=== PATIENT | female | born 1960 | race Caucasian/White ===

== ENCOUNTER → 2017-08-18 | Outpatient (CLI) | payer OTHER ==
[~2017-08-18] MED LIST: ALPR.5 PO; LEVO25TA4 PO
--- NOTE | 2017-08-18 22:47 | EKG ---
Date Performed: 08/18/2017 Time Performed: 10:40:32 PTAGE: 56 years EKG: Sinus rhythm NORMAL ECG NO PREVIOUS TRACING DOCTOR: Rosie Corona Interpretating Date/Time 08/18/2017 22:44:50
== END ==
LOC: PHPRE 09:40
PROVIDERS: ATTEND Ophthalmology
DX: E07.9 Disorder of thyroid, unspecified (principal)
CPT/HCPCS: 93005

== ENCOUNTER → 2017-09-01 | Day surgery (SDC) | payer OTHER ==
--- NOTE | 2017-08-27 13:32 | MH ---
cc: Hayden Granger MD DATE OF ADMISSION: 09/01/2017 ADMISSION DIAGNOSIS: Cataract, right eye. HISTORY OF PRESENT ILLNESS: This 56-year-old white female is coming to [facility] for the purpose of a lens extraction of the right eye with intraocular lens implant under local anesthesia. She has noticed decreasing visual acuity interfering with her daily activities and elected to have the above procedure. Her best corrected acuity is 20/40-2, +2 in the right eye and 20/40-1 in the left eye. PAST MEDICAL HISTORY: Patient has a history of hypothyroid problems. SURGICAL HISTORY: Tonsillectomy at age 5. DAILY MEDICATIONS: Latisse for her eyelashes, levothyroxine, Xanax p.r.n., melatonin and vitamin D. SHE HAS NO KNOWN ALLERGIES. SOCIAL HISTORY: Has been a smoker and drinks 4 glasses of wine per week. FAMILY HISTORY: Positive for mother with cataracts and her mother developed ocular myasthenia gravis after her cataract surgery, and father with macular degeneration. REVIEW OF SYSTEMS: HEAD: Patient denies severe headaches, dizziness or recent head injury. EARS: Patient has some hearing loss and sometimes gets tinnitus in her ears. NOSE: Patient denies nasal discharge, obstruction or frequent colds. MOUTH AND THROAT: Patient denies soreness of the mouth or tongue, bleeding gums, trouble swallowing, changes in voice or sore throat. NECK: Patient denies neck pain or swelling, limitation of neck movement or neck injury. CARDIOPULMONARY SYSTEM: Patient denies shortness of breath, orthopnea, sputum production, hemoptysis, chest pain, wheezing, palpitations or light-headedness. Sometimes with some coughing from maybe postnasal drip. GI SYSTEM: Patient denies poor appetite, nausea, vomiting, abdominal pain, ulcers, hemorrhoids or change in bowel habits. SYSTEM: The patient denies urinary frequency, dysuria, change in urine color. NERVOUS SYSTEM: Patient denies convulsions, vertigo, stroke, numbness or weakness. PHYSICAL EXAMINATION: Blood pressure 118/72, pulse 64, respirations 16. HEAD: Normocephalic, atraumatic. NOSE: Without rhinorrhea. THROAT: Clear. NECK: Supple. CHEST: Clear. HEART: Regular rhythm with murmur. ABDOMEN: Without tenderness. EXTREMITIES: Without edema. NEUROLOGIC: Within normal limits. MENTAL STATUS: Within normal limits. EYE EXAMINATION: Patient's best corrected visual acuity is 20/40-2, +2 in the right eye and 20/40-1 in the left eye. Visual ruiz are full to confrontation testing. Extraocular muscle exam reveals full versions distance and near. Pupils are 3 mm, equal, round, reactive to light without efferent defect. Anterior segment examination reveals nuclear sclerotic and posterior subcapsular cataract as well as peripheral cortical cataract changes, greater in the right eye than the left. Intraocular pressure is 14 in the right eye and 16 in the left eye by applanation tonometry. exam revealed sharp discs with cup-to-disc ratio 0.2 bilaterally. The macula looks clear and posterior vitreous detachment is present in the right eye. IMPRESSION: 1. Bilateral cataracts, right greater than left. 2. Posterior vitreous detachment, right eye. 3. Dry eyes. PLAN: Lens extraction of the right eye with intraocular lens implant under local anesthesia through [facility]. Patient has been cleared medically. She has been counseled as to the risks, benefits and alternatives and elected to proceed. I feel that cataract surgery will improve the quality of life and activities of daily living in this patient. MD DAGO De León/SB , 12:58 PM , 01:31 PM
[~2017-09-01] VITALS: Ht 157.5 cm; Wt 67.2 kg
[~2017-09-01] MED LIST changes: +ACETYLCHOLINE CHL OPHT SOLN 1:100 2 ML VIAL ONE; +CHLORHEXIDINE GLUCONATE 2 % 1 PACK (2 CLOTHS) TOPICAL PRN; +EPINEPHrine HCL PF/SF (1:1000) 1 MG/ML AMP I-OCULAR ONE; +HYALURONIDASE/LIDOCAINE/BUPIVACAINE 5 ML SYR ONE; +HYALURONIDASE/LIDOCAINE/BUPIVACAINE 5 ML SYR RIGHT EYE ONE; +LACTATED RINGER'S 1000 ML IV PRN; +METOPROLOL TARTRATE 25 MG TAB PO PRN; +PILOCARPINE HCL 2% OPHT SOLN 15 ML BTL ONE; +POVIDONE IODINE 5% (ANTISEPSIS KIT) 4 APPLICATIONS EACH NARE PRN; +PROPARACAINE HCL 0.5% OPHT SOLN 15 ML BTL RIGHT EYE ONE; +PROPOFOL 200 MG/20 ML AMP ONE; +SODIUM CHLORID 0.9% 500 ML IV PRN; +TOBRAMYCIN/DEXAMETHASONE OPTH OINT 3.5 GM TUBE ONE; +VISCOAT OPHT IRRIG SOLN 0.75 ML SYRINGE ONE
[2017-09-01 07:10] VITALS: PULSE 92
[2017-09-01] MEDS: GATIFLOXACIN 0.5% OPHT SOLN 2.5 ML BTL RIGHT EYE SCH ×4 (07:13→07:22)
[2017-09-01] MEDS: DICLOFENAC SOD 0.1% OPHT SOLN 2.5 ML BTL RIGHT EYE SCH ×4 (07:13→07:22)
[2017-09-01] MEDS: PHENYLEPHRINE HCL 2.5% OPTH SOLN 2 ML BTL RIGHT EYE SCH ×4 (07:13→07:22)
[2017-09-01] MEDS: CYCLOPENTOLATE HCL 1% OPHT SOLN 2 ML BTL RIGHT EYE SCH ×4 (07:13→07:22)
[2017-09-01] MEDS: TROPICAMIDE 1% OPHT SOLN 15 ML BTL RIGHT EYE SCH ×4 (07:13→07:22)
[2017-09-01 07:36] VITALS: PULSE 81
[2017-09-01 08:50] VITALS: TEMP 98
[2017-09-01 09:10] VITALS: BP 134/82; PULSE 78; RESP 16; O2SAT 100
--- NOTE | 2017-09-01 09:23 | MP ---
cc: Hayden Granger MD DATE OF OPERATION: 09/01/2017 POSTOPERATIVE DIAGNOSIS: Cataract right eye. OPERATION: Extracapsular cataract extraction with posterior chamber intraocular lens implant by phacoemulsification, right eye. SURGEON: Hayden Granger M.D. ANESTHESIA: Local. COMPLICATIONS: None. INDICATIONS: See history and physical previously dictated. OPERATIVE PROCEDURE: The patient had adequate retrobulbar and eyelid blocks administered in the holding area and was brought to the operating room. The right eye was prepped and draped in the usual sterile ophthalmic manner. A lid speculum was inserted in the right eye. A 4-0 silk bridle suture was placed through the conjunctiva near the superior rectus muscle and it was tagged to the drape. A fornix-based conjunctival flap was prepared spanning approximately 5 mm in width. Hemostasis was obtained with wet-field cautery. A 3.5 mm groove was made 1 mm from the limbus and dissected up to the limbus in the form of a scleral pocket incision. A stab incision was then made at the 2 o'clock position. Viscoelastic was injected into the anterior chamber. The anterior chamber was entered with a 2.75 mm keratome through the scleral pocket incision. A 360 degree continuous curvilinear capsulorrhexis was then performed. Hydrodissection was utilized to divide the nucleus into inner and outer components and to separate the cortex from the capsule. Phacoemulsification was then utilized to remove the nucleus. The outer nuclear layer was removed with irrigation and aspiration and short bursts of ultrasound as necessary. The cortex was removed with the irrigation/aspiration handpiece. The posterior capsule was polished with the capsule polisher. Viscoelastic was injected into the capsular bag. The intraocular lens was inspected and found to be in good condition. The lens utilized was a Carlitos, model number SA60AT with a power of +22 diopters. The lens was inserted into the capsular bag. The viscoelastic in the anterior chamber was then removed with the irrigation-aspiration handpiece. Viscoelastic was also removed from beneath the intraocular lens. The anterior chamber was filled with Miochol-E through the stab incision and pressurized. The wound was checked for leaks at this pressure and normalized pressure and there were none. The 4-0 bridle suture was removed. The conjunctival flap was brought down over the wound and secured with cautery. Pilocarpine 2% eye drops were instilled topically. The lid speculum was removed. TobraDex ophthalmic ointment was applied. The eye was double patched and shielded. The patient tolerated the procedure well and left the Operating Room in satisfactory condition. MD DAGO De León/MIKE , 08:57 AM , 09:20 AM
== END | disposition home or self-care (01) ==
LOC: PHSDC 06:49
PROVIDERS: ATTEND Ophthalmology
DX: H26.9 Unspecified cataract (principal)
CPT/HCPCS: 00142; 66984; J0171; J7040; V2632